=== PATIENT | female | born 1990 | race American Indian/Alaskan Native ===

== ENCOUNTER 2018-02-26 13:22 | Emergency (ER) | payer SELFPAY ==
[2018-02-26 13:47] VITALS: BP 123/70
[2018-02-26 14:34] LABS: Bilirubin,Urine NEG (Negative); Blood,Urine NEG (Negative); Color,Urine Yellow (Yellow); Hyaline Casts,Urine 1 /LPF; Protein,Urine <15 mg/dL mg/dL (Negative); Urobilinogen,Urine < 2.0 mg/dL (<2.0)
[2018-02-26 14:42] LABS: RBC,Urine < 1.0 /HPF (0.0-6.0)
--- NOTE | 2018-02-26 16:34 | Ultrasound Report ---
FINAL REPORT PROCEDURE: Transabdominal obstetrical ultrasound. TECHNIQUE: Real-time transabdominal sonography of the uterus, placenta, amniotic fluid, adnexa, and fetus was performed with image documentation. Measurements were obtained to determine age/size. M-mode Doppler was used to document heartbeat. CPT 49456 HISTORY: , vaginal bleeding. COMPARISON: No prior studies are available for comparison. FINDINGS: The uterus measures 10.5 centimeters x 6.0 centimeters x 7.6 centimeters. The myometrium appears uniform. There is a small intrauterine gestational sac. This should be better visualized by transvaginal imaging. Neither ovary is identified. IMPRESSION: Early intrauterine gestational sac.
--- NOTE | 2018-02-26 16:43 | Ultrasound Report ---
FINAL REPORT PROCEDURE: Transvaginal obstetrical ultrasound. TECHNIQUE: Real-time transvaginal sonography of the uterus, placenta, amniotic fluid, adnexa, and fetus was performed with image documentation. Measurements were obtained to determine age/size. M-mode Doppler was used to document heartbeat. CPT 91583 HISTORY: , vaginal bleeding. COMPARISON: No prior studies are available for comparison. FINDINGS: The uterus measures 11.0 centimeters x 4.8 centimeters x 6.1 centimeters. The myometrium appears uniform. The endometrial echo complex appears normal. There is a small fluid collection in the fundal portion of the endometrial canal. This is consistent with a gestational sac. There is no definite yolk sac or pole identified however. Follow-up imaging is recommended. The mean gestational sac diameter is 10.0 millimeters. This indicates a menstrual age of 5 weeks 5 days. The estimated date of confinement is 10/24/2018. Both ovaries appear normal in size. There are some small follicles present in the left ovary. There is a simple cyst in the right ovary with a maximum dimension of 2.8 centimeters. There is minimal free fluid in the pelvis. IMPRESSION: Probable early intrauterine gestational sac. Follow-up imaging recommended.
--- NOTE | 2018-02-26 17:51 | Emergency Department Report ---
ED HPI - General Chief complaint: Vaginal Bleeding Stated complaint: PREG/BLEEDING 5WEEKS Source: patient Mode of arrival: Ambulatory Limitations: No Limitations - History of Present Illness Initial comments: This is a 27-year-old -[place] female who presents with abdominal cramping and vaginal bleeding during . Patient states she had a confirmed ultra sound while applying for Medicaid and was told she was 5 weeks 2 weeks ago. Patient states she is currently taking vitamins were given to when appointment. She is now complaining of some abdominal cramping and light bleeding with wiping that started this morning. Patient states she has had some nausea without vomiting but associates that with morning sickness. Patient reports last menstrual period is 01/23/2018, 83. She denies fever, frequency, urgency, vaginal discharge, dysuria, and low back pain. MD Complaint: abdominal pain, vaginal bleeding -: This morning Location: abdomen (lower abdominal cramping) Radiation: none Severity: mild Severity scale (0 -10): 3 Quality: cramping Consistency: intermittent Improves with: none Worsens with: none Associated symptoms: nausea/vomiting (nausea without vomiting), vaginal bleeding , abdominal pain (lower abdominal cramping). denies: vaginal discharge, headache, vision changes, malaise, dysparuenia, rash, seizure, shortness of breath, syncope, weakness Vaginal bleeding: light :: Yes Number of weeks : 5 OB History - Current : no complications OB History - Previous Pregnancies: miscarriage Last menstrual period: 01/23/18 Pre- care: none - Related Data : 4 Para: 1 Ab: 2 Allergies Allergy/AdvReac Type Severity Reaction Status Date / Time No Known Allergies Allergy Unverified 02/26/18 13:47 ED Review of Systems ROS: Stated complaint: PREG/BLEEDING 5WEEKS Other details as noted in HPI Constitutional: denies: chills, fever Respiratory: denies: cough, shortness of breath, wheezing Cardiovascular: denies: chest pain, palpitations Gastrointestinal: abdominal pain. denies: nausea, diarrhea Genitourinary: other (vaginal bleeding ). denies: urgency, dysuria, frequency, discharge Neurological: denies: headache, weakness, paresthesias Psychiatric: denies: anxiety, depression ED Past Medical Hx - Past Medical History Previous Medical History?: No - Surgical History Past Surgical History?: No - Social History Smoking Status: Never Smoker Substance Use Type: None ED Physical Exam - General Limitations: No Limitations General appearance: alert, in no apparent distress - Respiratory Respiratory exam: Present: normal lung sounds bilaterally. Absent: respiratory distress - Cardiovascular Cardiovascular Exam: Present: regular rate, normal rhythm. Absent: systolic murmur, diastolic murmur, rubs, gallop - GI/Abdominal GI/Abdominal exam: Present: soft, normal bowel sounds. Absent: distended, tenderness, guarding, rebound, rigid, organomegaly, mass - Back Exam Back exam: Present: normal inspection - Neurological Exam Neurological exam: Present: alert, oriented X3 - Psychiatric Psychiatric exam: Present: normal affect, normal mood - Skin Skin exam: Present: warm, dry, intact, normal color. Absent: rash ED Course Vital Signs 02/26/18 13:43 Temperature 98.7 F Pulse Rate 92 H Respiratory 18 Rate Blood Pressure 123/70 O2 Sat by Pulse 99 Oximetry ED Medical Decision Making - Lab Data Lab Results 02/26/18 02/26/18 02/26/18 Range/Units 13:52 13:52 13:55 HCG, Quant 5622 H (0-4) mIU/mL Urine Color Yellow (Yellow) Urine Turbidity Slightly-cloudy (Clear) Urine pH 6.0 (5.0-7.0) Ur Specific [place] 1.017 (1.003-1.030) Urine Protein <15 mg/dl (Negative) mg/dL Urine Glucose (UA) Neg (Negative) mg/dL Urine Ketones Tr (Negative) mg/dL Urine Blood Neg (Negative) Urine Nitrite Neg (Negative) Urine Bilirubin Neg (Negative) Urine Urobilinogen < 2.0 (<2.0) mg/dL Ur Leukocyte Esterase Neg (Negative) Urine WBC (Auto) 1.0 (0.0-6.0) /HPF Urine RBC (Auto) < 1.0 (0.0-6.0) /HPF U Epithel Cells (Auto) 5.0 (0-13.0) /HPF Hyaline Casts 1 /LPF Blood Type B POSITIVE - Radiology Data Radiology results: report reviewed, image reviewed FINAL REPORT PROCEDURE: Transvaginal obstetrical ultrasound. TECHNIQUE: Real-time transvaginal sonography of the uterus, placenta, amniotic fluid, adnexa, and fetus was performed with image documentation. Measurements were obtained to determine age/size. M-mode Doppler was used to document heartbeat. CPT 50327 HISTORY: , vaginal bleeding. COMPARISON: No prior studies are available for comparison. FINDINGS: The uterus measures 11.0 centimeters x 4.8 centimeters x 6.1 centimeters. The myometrium appears uniform. The endometrial echo complex appears normal. There is a small fluid collection in the fundal portion of the endometrial canal. This is consistent with a gestational sac. There is no definite yolk sac or pole identified however. Follow-up imaging is recommended. The mean gestational sac diameter is 10.0 millimeters. This indicates a menstrual age of 5 weeks 5 days. The estimated date of confinement is 10/24/2018. Both ovaries appear normal in size. There are some small follicles present in the left ovary. There is a simple cyst in the right ovary with a maximum dimension of 2.8 centimeters. There is minimal free fluid in the pelvis. IMPRESSION: Probable early intrauterine gestational sac. Follow-up imaging recommended. PROCEDURE: Transabdominal obstetrical ultrasound. TECHNIQUE: Real-time transabdominal sonography of the uterus, placenta, amniotic fluid, adnexa, and fetus was performed with image documentation. Measurements were obtained to determine age/size. M-mode Doppler was used to document heartbeat. CPT 14068 HISTORY: , vaginal bleeding. COMPARISON: No prior studies are available for comparison. FINDINGS: The uterus measures 10.5 centimeters x 6.0 centimeters x 7.6 centimeters. The myometrium appears uniform. There is a small intrauterine gestational sac. This should be better visualized by transvaginal imaging. Neither ovary is identified. IMPRESSION: Early intrauterine gestational sac. - Medical Decision Making Patient was examined by me in the emergency department. Vitals are normal and patient is in no acute distress. Obtained a labs and OB ultrasound. Quant is 5622 all other labs unremarkable. Patient instructed to have repeat hCG quant in 48 hours with [facility] or in ER to r/o threatened . Patient discharged home in stable condition. Critical care attestation.: If time is entered above; I have spent that time in minutes in the direct care of this critically ill patient, excluding procedure time. ED Disposition Clinical Impression: Threatened in early , Vaginal bleeding affecting early , Abdominal cramping affecting Disposition: DC-01 TO HOME OR SELFCARE Is pt being admited?: No Does the pt Need Aspirin: No Condition: Stable Instructions: Threatened Miscarriage (ED) Additional Instructions: Have repeat hCG quant labs in 48 hours with [facility] or ER. HCG today is 5622. Follow up with [facility] in 24-48 hours. Return to ER if increased vaginal bleeding, abdominal pain, and low back pain. Referrals: [facility] [Provider Group] - 3-5 Days [facility] [Provider Group] - 3-5 Days JENNIFER MACIAS MD [Staff Physician] - 3-5 Days Forms: Work/School Release Form(ED) Time of Disposition: 17:58 Print Language: GUAMANIAN
== END 2018-02-26 19:15 | disposition home or self-care (01) ==
LOC: ED 13:22
DX: O20.0 Threatened abortion (principal); Z3A.01 Less than 8 weeks gestation of pregnancy
CPT/HCPCS: 36415; 76801; 76802; 76817; 81001; 84702; 86900; 86901; 99283